=== PATIENT | male | born 1945 | race Hispanic/Latino ===

== ENCOUNTER 2017-06-08 11:06 | Inpatient (IN) | payer MEDICARE ==
[~2017-06-08] VITALS: Ht 165.1 cm; Wt 67.7 kg
[~2017-06-08 11:06] MED LIST: ALBU8.5H8 IH; BUDE10.22 IH; CARB1TAB20 PO; CARB1TAB23 PO; DIGO0.12 PO; DILT360C32 PO; ENTA200T5 PO; LEVO25TA54 PO; LISI40TA4 PO; ROPI2TAB29 PO; SERT100T12 PO
[2017-06-08] MEDS ORDERED: IPRATROPIUM/ALBUTEROL SULFATE 3 ML SOLUTION IH ONE (11:55)
[2017-06-08 12:05] LABS: BASOPHILS % (AUTO) 0.9 % (0.0-5.0); EOSINOPHILS % (AUTO) 1.3 % (0.0-8.0); HEMATOCRIT 34.8 % (42-54); LYMPHOCYTES % (AUTO) 8.5 % (21.0-51.0); MEAN CORPUSCULAR HEMOGLOBIN 34.4 pg (27.0-33.0); MEAN CORPUSCULAR HGB CONC 34.4 g/dL (32.0-36.0); MEAN CORPUSCULAR VOLUME 99.9 fL (79-99); MONOCYTES % (AUTO) 5.9 % (3.0-13.0); NEUTROPHILS % (AUTO) 83.4 % (40.0-77.0); NUCLEATED RED BLOOD CELLS 0.1 % (0.0-0.19); PLATELET COUNT (AUTO) 182 K/uL (130-400); RED BLOOD CELL COUNT(AUTO) 3.48 MIL/uL (4.50-6.20); RED CELL DISTRIBUTION WIDTH 14.7 % (11.0-15.5)
[2017-06-08] MEDS ORDERED: METHYLPREDNISOLONE SOD SUCC 40MG/ML 1ML ONE (12:05)
[2017-06-08] MEDS ORDERED: ENOXAPARIN SODIUM 30 MG/0.3 ML SQ ONE (12:06)
[2017-06-08] MEDS ORDERED: LEVOFLOXACIN 500 MG/D5W 100 ML 100 ML ONE (12:06)
[2017-06-08] MEDS ORDERED: CEFTRIAXONE SODIUM 1 GM ONE (12:06)
[2017-06-08] MEDS ORDERED: 1/2 NORMAL SALINE 1,000 ML IV SCH (15:30)
[2017-06-08 16:10] VITALS: BP 146/73
[2017-06-08] MEDS: BROVANA PO SCH (18:00)
[2017-06-08] MEDS: ACETYLCYSTEINE 20% 200MG/ML 4ML VIAL PO SCH (18:41)
[2017-06-08] MEDS: IPRATROPIUM/ALBUTEROL SULFATE 3 ML SOLUTION IH SCH ×2 (18:41→23:24)
[2017-06-08 19:32] VITALS: BP 153/82
[2017-06-08] MEDS ORDERED: PRAV10TA39 PO (20:22)
[2017-06-08] MEDS ORDERED: AMLO5TAB4 PO (20:22)
[2017-06-08] MEDS ORDERED: VENTOLIN HFA IH PRN (20:45)
[2017-06-08] MEDS: Entacapone 200 MG PO SCH (23:02)
[2017-06-08] MEDS: ROPINIROLE HCL 1 MG TABLET PO SCH (23:03)
[2017-06-08] MEDS: METHYLPREDNISOLONE SOD SUCC 125MG/2ML VIAL IVP SCH (23:04)
[2017-06-08] MEDS: ACETYLCYSTEINE 20% 200MG/ML 4ML VIAL IH SCH (23:23)
[2017-06-08 23:33] VITALS: BP 135/73
[2017-06-09] VITALS (7 sets, daily range): BP systolic 102–165; BP diastolic 54–86
[2017-06-09 04:45] LABS: HEMATOCRIT 36.6 % (42-54); MEAN CORPUSCULAR HEMOGLOBIN 34.3 pg (27.0-33.0); MEAN CORPUSCULAR HGB CONC 34.1 g/dL (32.0-36.0); MEAN CORPUSCULAR VOLUME 100.6 fL (79-99); NUCLEATED RED BLOOD CELLS 0.1 % (0.0-0.19); PLATELET COUNT (AUTO) 162 K/uL (130-400); RED BLOOD CELL COUNT(AUTO) 3.64 MIL/uL (4.50-6.20); RED CELL DISTRIBUTION WIDTH 14.4 % (11.0-15.5); WHITE BLOOD COUNT (AUTO) 2.9 K/uL (4.8-10.8)
[2017-06-09 04:52] LABS: POTASSIUM 4.4 mmol/L (3.5-5.1)
[2017-06-09 05:09] LABS: BAND NEUTROPHILS % (MANUAL) 1 % (0-2); LYMPHOCYTES % (MANUAL) 8 % (22-44); MAN.DIFF COMMENT-IMPRESSION MANUAL DIFFERENTIAL; METAMYELOCYTES % 1 % (0-0); SEGMENTED NEUTROPHILS % 90 % (40-70)
[2017-06-09 05:10] LABS: PLATELET MORPHOLOGY COMMENT ADEQUATE
[2017-06-09] MEDS: BROVANA PO SCH ×2 (06:00→18:00)
[2017-06-09] MEDS: ACETYLCYSTEINE 20% 200MG/ML 4ML VIAL PO SCH (06:10)
[2017-06-09] MEDS: IPRATROPIUM/ALBUTEROL SULFATE 3 ML SOLUTION IH SCH ×4 (06:10→23:18)
[2017-06-09] MEDS: Pravastatin Sodium 10 MG PO SCH ×2 (09:00→22:08)
[2017-06-09] MEDS: Entacapone 200 MG PO SCH ×4 (09:00→22:07)
[2017-06-09] MEDS: AMLODIPINE BESYLATE 5 MG TAB PO SCH (10:02)
[2017-06-09] MEDS: CARBIDOPA-LEVODOPA 25-100 TAB PO SCH ×3 (10:02→16:25)
[2017-06-09] MEDS: METHYLPREDNISOLONE SOD SUCC 125MG/2ML VIAL IVP SCH ×2 (10:03→22:06)
[2017-06-09] MEDS: LEVOTHYROXINE 25 MCG TABLET PO SCH (10:03)
[2017-06-09] MEDS: LISINOPRIL 40 MG TABLET PO SCH (10:03)
[2017-06-09] MEDS: CEFTRIAXONE SODIUM 1 GM IVP SCH (10:03)
[2017-06-09] MEDS: ROPINIROLE HCL 1 MG TABLET PO SCH ×2 (10:03→22:06)
[2017-06-09] MEDS: ENOXAPARIN SODIUM 30 MG/0.3 ML SQ SCH (10:04)
[2017-06-09] MEDS: LEVOFLOXACIN 500 MG/D5W 100 ML 100 ML IV SCH (10:04)
[2017-06-09] MEDS: DIGOXIN 125 MCG TABLET PO SCH (16:26)
[2017-06-09] MEDS: ACETYLCYSTEINE 20% 200MG/ML 4ML VIAL IH SCH ×2 (19:27→23:18)
[2017-06-10 03:45] VITALS: BP 144/74
[2017-06-10] MEDS: BROVANA PO SCH ×2 (06:00→17:08)
[2017-06-10] MEDS: IPRATROPIUM/ALBUTEROL SULFATE 3 ML SOLUTION IH SCH ×4 (06:37→23:34)
[2017-06-10] MEDS: ACETYLCYSTEINE 20% 200MG/ML 4ML VIAL IH SCH ×4 (06:37→23:34)
[2017-06-10 08:00] VITALS: BP 152/69
[2017-06-10] MEDS: Entacapone 200 MG PO SCH ×4 (09:00→21:00)
[2017-06-10] MEDS: LEVOTHYROXINE 25 MCG TABLET PO SCH (09:23)
[2017-06-10] MEDS: ROPINIROLE HCL 1 MG TABLET PO SCH ×2 (09:23→21:37)
[2017-06-10] MEDS: LISINOPRIL 40 MG TABLET PO SCH (09:24)
[2017-06-10] MEDS: AMLODIPINE BESYLATE 5 MG TAB PO SCH (09:24)
[2017-06-10] MEDS: METHYLPREDNISOLONE SOD SUCC 125MG/2ML VIAL IVP SCH ×2 (09:24→21:37)
[2017-06-10] MEDS: CEFTRIAXONE SODIUM 1 GM IVP SCH (09:24)
[2017-06-10] MEDS: LEVOFLOXACIN 500 MG/D5W 100 ML 100 ML IV SCH (09:25)
[2017-06-10] MEDS: CARBIDOPA-LEVODOPA 25-100 TAB PO SCH ×3 (09:29→17:07)
[2017-06-10] MEDS: ENOXAPARIN SODIUM 30 MG/0.3 ML SQ SCH (09:34)
[2017-06-10 12:00] VITALS: BP 120/80
[2017-06-10 16:00] VITALS: BP 130/52
[2017-06-10] MEDS: DIGOXIN 125 MCG TABLET PO SCH (17:07)
[2017-06-10 20:00] VITALS: BP 134/71
[2017-06-10 23:56] VITALS: BP 129/68
[2017-06-11 04:00] VITALS: BP 117/64
[2017-06-11 04:39] LABS: HEMATOCRIT 37.4 % (42-54); MEAN CORPUSCULAR HEMOGLOBIN 33.9 pg (27.0-33.0); MEAN CORPUSCULAR HGB CONC 34.1 g/dL (32.0-36.0); MEAN CORPUSCULAR VOLUME 99.5 fL (79-99); PLATELET COUNT (AUTO) 179 K/uL (130-400); RED BLOOD CELL COUNT(AUTO) 3.76 MIL/uL (4.50-6.20); RED CELL DISTRIBUTION WIDTH 14.3 % (11.0-15.5); WHITE BLOOD COUNT (AUTO) 7.6 K/uL (4.8-10.8)
[2017-06-11] MEDS: BROVANA PO SCH (06:00)
[2017-06-11] MEDS: LEVOTHYROXINE 25 MCG TABLET PO SCH (06:10)
[2017-06-11] MEDS: CARBIDOPA-LEVODOPA 25-100 TAB PO SCH ×3 (06:11→17:08)
[2017-06-11] MEDS: IPRATROPIUM/ALBUTEROL SULFATE 3 ML SOLUTION IH SCH ×2 (06:20→10:59)
[2017-06-11] MEDS: ACETYLCYSTEINE 20% 200MG/ML 4ML VIAL IH SCH ×2 (06:20→10:59)
[2017-06-11 08:00] VITALS: BP 124/61
[2017-06-11] MEDS: Entacapone 200 MG PO SCH ×3 (09:00→17:00)
[2017-06-11] MEDS: Pravastatin Sodium 10 MG PO SCH (09:00)
[2017-06-11] MEDS: AMLODIPINE BESYLATE 5 MG TAB PO SCH (09:36)
[2017-06-11] MEDS: LISINOPRIL 40 MG TABLET PO SCH (09:37)
[2017-06-11] MEDS: ROPINIROLE HCL 1 MG TABLET PO SCH (09:37)
[2017-06-11] MEDS: CEFTRIAXONE SODIUM 1 GM IVP SCH (09:38)
[2017-06-11] MEDS: METHYLPREDNISOLONE SOD SUCC 125MG/2ML VIAL IVP SCH (09:39)
[2017-06-11] MEDS: LEVOFLOXACIN 500 MG/D5W 100 ML 100 ML IV SCH (09:41)
[2017-06-11] MEDS: ENOXAPARIN SODIUM 30 MG/0.3 ML SQ SCH (09:45)
[2017-06-11 12:00] VITALS: BP 145/66
[2017-06-11 16:00] VITALS: BP 146/69
[2017-06-11] MEDS: DIGOXIN 125 MCG TABLET PO SCH (17:09)
== END 2017-06-11 18:15 | disposition home or self-care (01) | DRG 193 ==
LOC: EDH 11:06 → EDHIP 11:07 → 2DH 15:51 → 3DH 06-09 14:12
PROVIDERS: ADMIT Internal Medicine; ATTEND Internal Medicine
DX: J18.9 Pneumonia, unspecified organism (principal); J96.90 Respiratory failure, unspecified, unspecified whether with hypoxia or hypercapnia; J44.1 Chronic obstructive pulmonary disease with (acute) exacerbation; J44.0 Chronic obstructive pulmonary disease with (acute) lower respiratory infection; G20 Parkinson's disease
CPT/HCPCS: 36415; 71045; 80048; 85007; 85025; 85027; 87040; 87071; 87077; 87186; 87205; 93005; 94640; 94664; A4218; J0696; J1650; J1956; J2920; J2930; J7608